=== PATIENT | male | born 1935 | race Caucasian/White ===

== ENCOUNTER 2024-12-30 15:41 | Observation (INO) | payer OTHER ==
[2024-12-30] MEDS ORDERED: ACETAMINOPHEN 500 MG TABLET (FP) ONE (17:02)
[2024-12-30] MEDS: ACETAMINOPHEN 500 MG TABLET (FP) PO ONE (17:05)
[2024-12-30] MEDS ORDERED: DIPHTH,PERTUSS(ACELL),TET 0.5 ML DISP.SYRIN IM ONE (17:07)
[2024-12-30] MEDS: DIPHTH,PERTUSS(ACELL),TET 0.5 ML DISP.SYRIN IM ONE (17:10)
[2024-12-30 19:05] LABS: ABSOLUTE IMMATURE GRANULOCYTES 0.02 x10^3/uL (0.0-0.031); BASOPHILS # 0.03 x10^3/uL (0.01-0.08); EOSINOPHIL % 1.3 % (0.8-7.0); EOSINOPHILS # 0.09 x10^3/uL (0.04-0.54); HEMATOCRIT 27.2 % (40.1-51.0); MCHC 29.4 g/dl (32.3-36.5); MEAN CELL VOLUME 101.1 fl (79.0-92.2); MEAN PLT VOLUME 10.2 fl (9.4-12.4); MONOCYTE % 8.9 % (5.3-12.2); PLATELET COUNT 145 x10^3/uL (163-337); RDW 16.7 % (12.6-16.6)
[2024-12-30 19:13] LABS: INR 1.14 (0.83-1.09); PROTHROMBIN TIME (PATIENT) 12.5 SEC (9.7-13.0)
[2024-12-30 19:16] LABS: ACTIVATED PTT 36.8 SECONDS (25.2-36.5)
[2024-12-30 19:25] LABS: CHLORIDE 109 mmol/L (98-107); POTASSIUM 4.6 mmol/L (3.5-5.1); SODIUM 140 mmol/L (136-145)
[2024-12-30 19:31] LABS: ANION GAP 7 mmol/L (4-13); BLOOD UREA NITROGEN 34.3 mg/dL (7-18); CO2 24 mmol/L (21-32)
[2024-12-30 19:32] LABS: GLUCOSE,RANDOM 128 mg/dL (74-106)
[2024-12-30 19:33] LABS: SGPT/ALT 19 U/L (13-61)
[2024-12-30 19:34] LABS: SGOT/AST 28 U/L (15-37)
[2024-12-30 19:35] LABS: BILIRUBIN,TOTAL 0.3 mg/dL (0.2-1); TOT PROT 6.3 g/dl (6.4-8.2)
[2024-12-30 19:37] LABS: ALK PHOS 119 U/L (45-117)
[2024-12-30] MEDS: SODIUM CHLORIDE 1,000 ML IV STA (20:57)
[2024-12-31 03:14] VITALS: BMI 24.6
[2024-12-31] MEDS ORDERED: MELATONIN 5 MG TABLETS PO PRN (06:37)
[2024-12-31] MEDS ORDERED: ACETAMINOPHEN 325 MG TABLET (FP) PO PRN (06:42)
[2024-12-31 07:19] LABS: ABSOLUTE IMMATURE GRANULOCYTES 0.01 x10^3/uL (0.0-0.031); BASOPHILS # 0.04 x10^3/uL (0.01-0.08); EOSINOPHIL % 2.9 % (0.8-7.0); EOSINOPHILS # 0.18 x10^3/uL (0.04-0.54); HEMATOCRIT 26.3 % (40.1-51.0); HEMOGLOBIN 7.9 g/dL (13.7-17.5); MEAN CELL VOLUME 100.4 fl (79.0-92.2); MEAN PLT VOLUME 10.4 fl (9.4-12.4); MONOCYTE # 0.57 x10^3/uL (0.30-0.82); MONOCYTE % 9.3 % (5.3-12.2); PLATELET COUNT 145 x10^3/uL (163-337); RDW 16.9 % (12.6-16.6)
[2024-12-31 07:35] LABS: POTASSIUM 4.5 mmol/L (3.5-5.1)
[2024-12-31 07:43] LABS: BLOOD UREA NITROGEN 33.9 mg/dL (7-18)
[2024-12-31] MEDS: metoPROLOL SUCCINATE 25 MG TAB.SR.24H (FP) PO SCH (10:26)
[2024-12-31] MEDS: PANTOPRAZOLE 40 MG TABLET PO SCH (10:26)
[2024-12-31] MEDS: DOCUSATE SODIUM 100 MG CAPSULE (FP) PO SCH (21:47)
[2024-12-31] MEDS: ATORVASTATIN CA 20 MG TABLET (FP) PO SCH (21:47)
[2025-01-01 08:34] LABS: POTASSIUM 4.3 mmol/L (3.5-5.1)
[2025-01-01 08:46] LABS: BLOOD UREA NITROGEN 34.9 mg/dL (7-18); CALCIUM 8.6 mg/dL (8.5-10.1)
[2025-01-01] MEDS: FUROSEMIDE 40 MG TABLET (FP) PO SCH (10:09)
[2025-01-01] MEDS: IRON SUCROSE INJECTION 200 MG in SODIUM CHLORIDE 100 ML IVPB ONE (14:18)
[2025-01-01 18:18] LABS: ABSOLUTE IMMATURE GRANULOCYTES 0.02 x10^3/uL (0.0-0.031); BASOPHILS # 0.05 x10^3/uL (0.01-0.08); EOSINOPHIL % 2.5 % (0.8-7.0); EOSINOPHILS # 0.16 x10^3/uL (0.04-0.54); HEMATOCRIT 27.5 % (40.1-51.0); HEMOGLOBIN 7.9 g/dL (13.7-17.5); MCHC 28.7 g/dl (32.3-36.5); MEAN CELL VOLUME 104.6 fl (79.0-92.2); MEAN PLT VOLUME 11.2 fl (9.4-12.4); MONOCYTE # 0.59 x10^3/uL (0.30-0.82); MONOCYTE % 9.1 % (5.3-12.2); PLATELET COUNT 142 x10^3/uL (163-337); RDW 16.7 % (12.6-16.6)
[2025-01-01 22:24] VITALS: RESP 16
[2025-01-02 07:46] LABS: ABSOLUTE IMMATURE GRANULOCYTES 0.02 x10^3/uL (0.0-0.031); BASOPHILS # 0.05 x10^3/uL (0.01-0.08); EOSINOPHIL % 3.3 % (0.8-7.0); EOSINOPHILS # 0.18 x10^3/uL (0.04-0.54); HEMATOCRIT 26.2 % (40.1-51.0); HEMOGLOBIN 7.8 g/dL (13.7-17.5); MCHC 29.8 g/dl (32.3-36.5); MEAN CELL VOLUME 101.2 fl (79.0-92.2); MONOCYTE # 0.65 x10^3/uL (0.30-0.82); MONOCYTE % 11.9 % (5.3-12.2); PLATELET COUNT 142 x10^3/uL (163-337); RDW 16.6 % (12.6-16.6)
[2025-01-02 08:09] LABS: POTASSIUM 4.2 mmol/L (3.5-5.1)
[2025-01-02 08:17] LABS: CALCIUM 8.8 mg/dL (8.5-10.1)
[2025-01-02 08:18] LABS: BLOOD UREA NITROGEN 31.7 mg/dL (7-18)
[2025-01-02 08:21] LABS: CREATININE 1.9 mg/dL (0.55-1.3)
[2025-01-02 11:03] LABS: URINE APPEARANCE CLEAR; URINE BILIRUBIN NEGATIVE (NEGATIVE); URINE COLOR YELLOW; URINE GLUCOSE (UA) NEGATIVE (NEGATIVE); URINE KETONE NEGATIVE (NEGATIVE)
[2025-01-02 11:04] LABS: URINE NITRITE NEGATIVE (NEGATIVE); URINE PROTEIN 1+ (NEGATIVE); URINE UROBILINOGEN 0.2 mg/dL (0.2-1.0)
[2025-01-02 11:05] LABS: URINE LEUK ESTERASE NEGATIVE (NEGATIVE)
[2025-01-02 11:57] LABS: EPI CELLS 2 /uL (0-25.1); HYALINE CASTS 0 /uL (0-3.1); URINE BACTERIA 5 /uL (0-1359); URINE RBC 10 /uL (0-23.9); URINE WBC 1 /uL (0-25.8)
[2025-01-02 12:37] VITALS: BP 128/74; PULSE 72; TEMP 97.8
== END 2025-01-02 17:29 | disposition home or self-care (01) ==
LOC: JER 15:41 → JERBED 22:19 → J4S 12-31 02:27
PROVIDERS: ADMIT Hospitalist; ATTEND Internal Medicine
PROC: 3E0234Z Introduction of Serum, Toxoid and Vaccine into Muscle, Percutaneous Approach (ICD-10-PCS; principal; 2024-12-30)
PROC: 3E033GC Introduction of Other Therapeutic Substance into Peripheral Vein, Percutaneous Approach (ICD-10-PCS; 2024-12-30)
PROC: 3E0337Z Introduction of Electrolytic and Water Balance Substance into Peripheral Vein, Percutaneous Approach (ICD-10-PCS; 2024-12-30)
DX: S02.85XA Fracture of orbit, unspecified, initial encounter for closed fracture (principal); S00.83XA Contusion of other part of head, initial encounter; W06.XXXA Fall from bed, initial encounter; S50.311A Abrasion of right elbow, initial encounter; Y93.89 Activity, other specified; Y92.092 Bedroom in other non-institutional residence as the place of occurrence of the external cause; I11.9 Hypertensive heart disease without heart failure; I11.0 Hypertensive heart disease with heart failure; K21.9 Gastro-esophageal reflux disease without esophagitis; D64.9 Anemia, unspecified; Z95.0 Presence of cardiac pacemaker; Z23 Encounter for immunization
CPT/HCPCS: 36415; 70450-TC; 70486-TC; 71045-TC-FY; 72125-TC; 72170-TC-FY; 73070-TC-RT-FY; 73090-TC-RT-FY; 76775-TC; 80048; 80053; 80061; 81003; 82550; 82607; 82728; 82962; 83540; 83550; 83735; 83880; 84443; 84484; 85025; 85610; 85730; 86850; 86900; 86901; 87635; 90471; 90715; 93005; 93010; 93306-TC; 96361; 96365; 99285-25; G0378; J1756